=== PATIENT | male | born 1945 | race Caucasian/White ===

== ENCOUNTER 2016-10-20 12:15 | Day surgery (SDC) | payer OTHER ==
[2016-10-20] MEDS ORDERED: LIDOCAINE 1% 2 ML INJ ID PRN (12:27)
[2016-10-20] MEDS ORDERED: LR 1,000 ML IV SCH (12:30)
[2016-10-20] MEDS ORDERED: LIDOCAINE 1% 5 ML SDV ONE (12:38)
[2016-10-20] MEDS ORDERED: IOTHALAMATE MEG (CONRAY) 50 ML VIAL IV ONE (12:42)
[2016-10-20] MEDS ORDERED: GLUCAGON,HUMAN RECOMBINANT 1 MG VIAL ONE (12:42)
[2016-10-20] MEDS ORDERED: LIDOCAINE 2% 5 ML SDV ONE (13:22)
[2016-10-20] MEDS ORDERED: PROPOFOL/EMULSION 500 MG/50 ML BOTTLE IV ONE (13:22)
[2016-10-20] MEDS ORDERED: REMIFENTANIL HCL 1 MG VIAL ONE (13:22)
[2016-10-20] MEDS ORDERED: ROCURONIUM 50 MG/5 ML VIAL ONE (13:23)
[2016-10-20] MEDS ORDERED: fentaNYL 100 MCG/2 ML INJ ONE (13:26)
[2016-10-20] MEDS ORDERED: DEXAMETHASONE 4 MG/ML VIAL ONE (13:28)
[2016-10-20] MEDS ORDERED: levOFLOXACIN 500 MG/DEXTROSE/100 ML BAG IV ONE (13:40)
[2016-10-20] MEDS ORDERED: SUGAMMADEX SODIUM 200 MG/2 ML VIAL IVP ONE (13:54)
[2016-10-20] MEDS ORDERED: ONDANSETRON 4 MG/2 ML VIAL ONE (13:55)
--- NOTE | 2016-10-20 14:50 | GPN ---
[f rep st] PROCEDURE NOTE DATE OF PROCEDURE: 10/20/2016 PROCEDURE: Endoscopic retrograde cholangiopancreatography with stent removal, removal of debris. INDICATION: Mr. Mariscal is a 71-year-old male with a prior history of a distal biliary stricture who presents for further evaluation. CONSENT: Risks, benefits, and alternatives of the procedure were discussed in great detail with the patient. Risk of infection, bleeding, perforation, sedation, and pancreatitis were discussed. All q uestions answered. Informed consent was obtained. MEDICATIONS: General anesthesia. Please see Anesthesia for details. Levaquin 500 mg IV x1. ESTIMATED BLOOD LOSS: Insignificant. ERCP EXAM: The Olympus duodenoscope was introduced into the mouth, advanced to the second portion of the duodenum. Emanating from the ampulla was two biliary stents that were snared and removed throug h though scope. Evidence of prior biliary obstruction was noted. Using a [employer] and a 0.05 inch wire, the wire was advanced into the common bile duct [place] using a wire guided technique. Teresa ral balloon sweeps were made with a 9-12 and 12-15 mm balloon with extraction of debris. No obvious distal biliary stricture was noted. IMPRESSION: 1. Resolved biliary stricture. 2. Removal of debris. 3. Removal of stents. RECOMMENDATIONS: 1. Clear liquid diet until tomorrow. 2. Follow up in GI office. /[id number]/MODL
--- NOTE | 2016-10-20 18:13 | DX ---
Intraoperative fluoroscopy History: ERCP. Comparison: ERCP August 01, 2016. Findings: Four spot films show balloon sweeping of the common bile duct, with no definite filling def ects identified on the final image. Filling defects on the second image could be related to air bubbl es or stones. Fluoro time: 124.7 seconds. Dose: 21.5 mGy. Impression: Intraoperative fluoroscopy as above.
== END 2016-10-20 15:30 | disposition home or self-care (01) ==
LOC: FSGY 12:15
PROVIDERS: ATTEND Internal Medicine Gastroenterology
PROC: BF101ZZ Fluoroscopy of Bile Ducts using Low Osmolar Contrast (ICD-10-PCS; principal; 2016-10-20 13:30)
PROC: 0FPB80Z Removal of Drainage Device from Hepatobiliary Duct, Via Natural or Artificial Opening Endoscopic (ICD-10-PCS; principal; 2016-10-20 13:30)
DX: Z09 Encounter for follow-up examination after completed treatment for conditions other than malignant neoplasm (principal); K21.9 Gastro-esophageal reflux disease without esophagitis; N40.0 Benign prostatic hyperplasia without lower urinary tract symptoms
CPT/HCPCS: J1100; J1610; J1956; J2405; J2704; J3010; Q9961

== ENCOUNTER → 2016-12-16 | Outpatient (CLI) | payer OTHER | LOC: BRMIMAGING 13:26 | PROVIDERS: ATTEND Family Medicine | DX: Z13.820 Encounter for screening for osteoporosis (principal); M85.80 Other specified disorders of bone density and structure, unspecified site; S22.000A Wedge compression fracture of unspecified thoracic vertebra, initial encounter for closed fracture ==

== ENCOUNTER → 2017-03-27 | Outpatient (CLI) | payer OTHER ==
[~2017-03-27] MED LIST: GADOBUTROL 10 ML VIAL IVP ONE
[2017-03-27 10:50] LABS: CREATININE 1.1 mg/dL (0.7-1.3); GLOMERULAR FILTRATION RATE > 60
== END ==
LOC: FIMAGING 09:45
PROVIDERS: ATTEND Surgery
DX: R22.42 Localized swelling, mass and lump, left lower limb (principal); L98.9 Disorder of the skin and subcutaneous tissue, unspecified
CPT/HCPCS: 73720; A9585